=== PATIENT | male | born 1975 | race Caucasian/White ===

== ENCOUNTER 2017-12-22 10:46 | Outpatient (CLI) | payer OTHER ==
[~2017-12-22 10:46] MED LIST: Iopamidol 370 76% 100 ML VIAL ONE
== END 2017-12-22 10:47 | disposition home or self-care (01) ==
LOC: BICCT 10:46
PROVIDERS: ATTEND Specialist
DX: R22.1 Localized swelling, mass and lump, neck (principal)
CPT/HCPCS: 70492